=== PATIENT | male | born 1980 | race Caucasian/White ===

== ENCOUNTER 2019-01-21 21:11 | Emergency (ER) | payer MEDICAID ==
[2019-01-21] MEDS ORDERED: ONDANSETRON HCL INJ/PF 4 MG/2 ML SDV IV ONE (23:08)
[2019-01-21] MEDS ORDERED: RINGERS SOLUTION,LACTATED 1,000 ML IV ONE (23:08)
--- NOTE | 2019-01-21 23:10 | ER Document Report ---
ED Medical Screen (RME) - General Chief Complaint: Nausea/Vomiting Stated Complaint: VOMITING Time Seen by Provider: 01/21/19 23:06 Notes: Patient is a 38-year-old male presents to the emergency department for what he thinks is food poisoning. States that last night after eating around 2100 hrs. he developed nausea and vomiting. States he has vomited intermittently since around 1:00 this morning. Still states he feels very nauseated and has a cramping feeling in his abdomen. Patient's denying any blood in his emesis. GENERAL: Alert, interacts well. No acute distress. ABDOMEN: Soft, generalized tenderness all 4 quadrants. Non-distended. Bowel sounds present in all 4 quadrants. I have greeted and performed a rapid initial assessment of this patient. A comprehensive ED assessment and evaluation of the patient, analysis of test results and completion of the medical decision making process will be conducted by additional ED providers. This medical record was dictated with voice recognizing software. There may be grammatical, syntax errors that are unintended. TRAVEL OUTSIDE OF THE [place] IN LAST 30 DAYS: No - Related Data Allergies/Adverse Reactions: No Known Allergies Allergy (Unverified 01/21/19 22:48) Past Medical History - Social History Frequency of alcohol use: None Drug Abuse: None Neurological Medical History: Reports: Hx Seizures Renal/ Medical History: Denies: Hx Peritoneal Dialysis Past Surgical History: Reports: Hx Orthopedic Surgery - right radius; right carpal tunnel; right clavicle Physical Exam - Vital signs Vitals: Temp Pulse Resp BP Pulse Ox 98.6 F 98 18 113/78 96 01/21/19 21:58 01/21/19 21:58 01/21/19 21:58 01/21/19 21:58 01/21/19 21:58 Course - Vital Signs Vital signs: Temp Pulse Resp BP Pulse Ox 98.6 F 98 18 113/78 96 01/21/19 21:58 01/21/19 21:58 01/21/19 21:58 01/21/19 21:58 01/21/19 21:58
[2019-01-21 23:57] LABS: ABSOLUTE LYMPHOCYTES (AUTO) 1.3 10^3/uL (0.5-4.7); ABSOLUTE MONOCYTES (AUTO) 0.9 10^3/uL (0.1-1.4); ABSOLUTE NEUT (AUTO) 6.4 10^3/uL (1.7-8.2); BASOPHILS % (AUTO) 0.2 % (0-2); EOSINOPHILS % (AUTO) 0.4 % (0-6); HEMATOCRIT 46.2 % (37.9-51.0); HEMOGLOBIN 15.7 g/dL (13.5-17.0); LYMPHOCYTES % (AUTO) 14.8 % (13-45); MEAN CORPUSCULAR HEMOGLOBIN 30.2 pg (27.0-33.4); MEAN CORPUSCULAR HGB CONC 34.1 g/dL (32.0-36.0); MEAN CORPUSCULAR VOLUME 89 fl (80-97); MONOCYTES % (AUTO) 10.1 % (3-13); PLATELET COUNT 266 10^3/uL (150-450); RED BLOOD COUNT 5.21 10^6/uL (4.35-5.55); RED CELL DISTRIBUTION WIDTH 12.8 % (11.5-14.0); SEGMENTED NEUTROPHILS % (AUTO) 74.5 % (42-78); TOTAL CELLS COUNTED % (AUTO) 100 %; WHITE BLOOD COUNT 8.6 10^3/uL (4.0-10.5)
[2019-01-22 00:20] LABS: ANION GAP 12 (5-19); BLOOD UREA NITROGEN 20 mg/dL (7-20); CALCIUM 9.4 mg/dL (8.4-10.2); CARBON DIOXIDE 26 mmol/L (22-30); CHLORIDE 101 mmol/L (98-107); GLUCOSE 142 mg/dL (75-110); POTASSIUM 3.8 mmol/L (3.6-5.0); SODIUM 139.4 mmol/L (137-145)
--- NOTE | 2019-01-22 03:19 | ER Document Report ---
ED General - General Chief Complaint: Nausea/Vomiting Stated Complaint: VOMITING Time Seen by Provider: 01/21/19 23:06 Notes: Patient is a 38-year-old male presents to the emergency department for what he thinks is food poisoning. States that last night after eating around 2100 hrs. he developed nausea and vomiting. States he has vomited intermittently since around 1:00 this morning. Still states he feels very nauseated and has a cramping feeling in his abdomen. Patient's denying any blood in his emesis. Patient is family in the emergency department with similar symptoms. Denies medical problems, no daily medications, denies allergies. TRAVEL OUTSIDE OF THE [place] IN LAST 30 DAYS: No - Related Data Allergies/Adverse Reactions: No Known Allergies Allergy (Unverified 01/21/19 22:48) Past Medical History - General Information source: Patient - Social History Smoking Status: Never Smoker Frequency of alcohol use: None Drug Abuse: None Family History: Reviewed & Not Pertinent Patient has suicidal ideation: No Patient has homicidal ideation: No Neurological Medical History: Reports: Hx Seizures Renal/ Medical History: Denies: Hx Peritoneal Dialysis Past Surgical History: Reports: Hx Orthopedic Surgery - right radius; right carpal tunnel; right clavicle Review of Systems - Review of Systems Constitutional: denies: Fever EENT: No symptoms reported Cardiovascular: No symptoms reported Respiratory: No symptoms reported Gastrointestinal: See HPI Genitourinary: No symptoms reported Male Genitourinary: No symptoms reported Musculoskeletal: No symptoms reported Skin: No symptoms reported Hematologic/Lymphatic: No symptoms reported Neurological/Psychological: No symptoms reported Physical Exam - Vital signs Vitals: Temp Pulse Resp BP Pulse Ox 98.6 F 98 18 113/78 96 01/21/19 21:58 01/21/19 21:58 01/21/19 21:58 01/21/19 21:58 01/21/19 21:58 - Notes Notes: GENERAL: Alert, interacts well. No acute distress. HEAD: Normocephalic, atraumatic. EYES: Pupils equal, round, and reactive to light. Extraocular movements intact. ENT: Oral mucosa moist, tongue midline. NECK: Full range of motion. Supple. Trachea midline. LUNGS: Clear to auscultation bilaterally, no wheezes, rales, or rhonchi. No respiratory distress. HEART: Regular rate and rhythm. No murmur ABDOMEN: Soft, left upper quadrant tenderness noted non-distended. Bowel sounds present in all 4 quadrants. No McBurney's point tenderness, no An sign noted. EXTREMITIES: Moves all 4 extremities spontaneously. No edema, normal radial and dorsalis pedis pulses bilaterally. No cyanosis. BACK: no cervical, thoracic, lumbar midline tenderness. No saddle anesthesia, normal distal neurovascular exam. NEUROLOGICAL: Alert and oriented x3. Normal speech. cranial nerves II through XII grossly intact PSYCH: Normal affect, normal mood. SKIN: Warm, dry, normal turgor. No rashes or lesions noted. Course - Re-evaluation Re-evalutation: 01/22/19 03:19 Laboratory 01/21/19 01/21/19 23:08 23:08 WBC 8.6 RBC 5.21 Hgb 15.7 Hct 46.2 MCV 89 MCH 30.2 MCHC 34.1 RDW 12.8 Plt Count 266 Seg Neutrophils % 74.5 Lymphocytes % 14.8 Monocytes % 10.1 Eosinophils % 0.4 Basophils % 0.2 Absolute Neutrophils 6.4 Absolute Lymphocytes 1.3 Absolute Monocytes 0.9 Absolute Eosinophils 0.0 Absolute Basophils 0.0 Sodium 139.4 Potassium 3.8 Chloride 101 Carbon Dioxide 26 Anion Gap 12 BUN 20 Creatinine 1.06 Est GFR ( Amer) > 60 Est GFR (Non-Af Amer) > 60 Glucose 142 H Calcium 9.4 On repeat abdominal examination patient's denying pain in all 4 quadrants. States he feels a lot better after antiemetic and fluid resuscitation in the emergency room. Patient was able to drink fluids with no further episodes of vomiting. Patient stable for discharge. - Vital Signs Vital signs: Temp Pulse Resp BP Pulse Ox 98.0 F 65 15 100/67 96 01/22/19 03:33 01/22/19 03:33 01/22/19 03:33 01/22/19 03:33 01/22/19 03:33 - Laboratory Result Diagrams: 01/21/19 23:08 01/21/19 23:08 Laboratory results interpreted by me: 01/21/19 23:08 Glucose 142 H Discharge - Discharge Clinical Impression: Nausea vomiting and diarrhea Condition: Stable Disposition: HOME, SELF-CARE Instructions: Antinausea Medication ([facility]), Diarrhea, Nonspecific ([facility]), Intravenous (IV) Fluids ([facility]), Vomiting ([facility]) Additional Instructions: As we discussed you have been seen and treated in the emergency department for nausea, vomiting after potential food poisoning. Please use antinausea medication as prescribed. Please also make sure you stay well-hydrated. Your labs revealed no signs of abnormalities at today's visit. Please make sure you follow-up with your primary care provider in the next 24 to 48 hours. Please return to the emergency room for any other concerning symptoms. Prescriptions: Ondansetron [Zofran Odt 4 mg Tablet] 1 - 2 tab PO Q6 #10 tab.rapdis Forms: Return to Work
[2019-01-22 03:33] VITALS: BP 100/67
== END 2019-01-22 03:34 | disposition home or self-care (01) ==
LOC: ER 21:11
DX: R11.2 Nausea with vomiting, unspecified (principal); R19.7 Diarrhea, unspecified
CPT/HCPCS: 99284; 96361; 96374; 36415; 85025; 80048; J2405; J7120